=== PATIENT | male | born 1950 ===

== ENCOUNTER 2016-12-21 09:19 | Day surgery (SDC) | payer OTHER ==
[2016-12-21] VITALS (8 sets, daily range): BP systolic 116–139; BP diastolic 74–79
[~2016-12-21] VITALS: Ht 170.2 cm; Wt 64.4 kg
[2016-12-21] MEDS ORDERED: Phenylephrine 2.5% Op 2ml Soln ONE (09:51)
[2016-12-21] MEDS ORDERED: Cyclopentolate 1% Opth Sol 2ml ONE (09:51)
[2016-12-21] MEDS ORDERED: Kenalog-40 1ml Vial ONE (09:56)
[2016-12-21] MEDS ORDERED: Pred Forte 1% Opth Susp 1ml ONE (09:56)
[2016-12-21] MEDS ORDERED: BSS 500ml btl ONE (09:56)
[2016-12-21] MEDS ORDERED: Povidone-Iodine 5% opth solution ONE (09:57)
[2016-12-21] MEDS ORDERED: Kenalog-10 5ml Inj ONE (09:57)
[2016-12-21] MEDS ORDERED: Maxitrol Opth Oint 3.5gm ONE (09:57)
[2016-12-21] MEDS ORDERED: Dexamethasone 4mg/ml vial ONE (09:57)
[2016-12-21] MEDS ORDERED: Tetracaine 0.5% Opth 4ml Soln ONE (09:57)
[2016-12-21] MEDS ORDERED: Goniosol 2.5% Opth Soln - 15ml ONE (09:58)
[2016-12-21] MEDS ORDERED: Lidocaine 2% MPF 5ml Vial INJ ONE (09:58)
[2016-12-21] MEDS ORDERED: Bupivacaine 0.75% 30ml vial INJ ONE (09:58)
[2016-12-21] MEDS ORDERED: BSS 15ml BTL ONE (09:58)
[2016-12-21] MEDS ORDERED: EPINEPHrine 1mg/1ml Amp ONE (09:58)
[2016-12-21] MEDS: Phenylephrine 2.5% Op 2ml Soln RIGHT EYE SCH ×3 (10:03→10:30)
[2016-12-21] MEDS: Cyclopentolate 1% Opth Sol 2ml RIGHT EYE SCH ×3 (10:03→10:29)
[2016-12-21] MEDS ORDERED: LIPITOR40 MG ORAL (10:26)
[2016-12-21] MEDS ORDERED: LOTREL PO (10:26)
[2016-12-21] MEDS ORDERED: METFORMIN HCL500 M1 ORAL (10:26)
--- NOTE | 2016-12-21 10:49 | Pre-Procedure Note/Attestation ---
Pre-Procedure Note/Attestation Complete Prior to Procedure Planned Procedure: right Procedure Narrative: ppv/el od Indications for Procedure Pre-Operative Diagnosis: pdr, vh od Attestation I attest that I discussed the nature of the procedure; its benefits; risks and complications; and alternatives (and the risks and benefits of such alternatives ), prior to the procedure, with the patient (or the patient's legal denial management representative). I attest that, if there was a reasonable possibility of needing a blood transfusion, the patient (or the patient's legal denial management representative) was given the [facility] standardized written summary, pursuant to the [place] Blood Safety Act ([place] Health and Safety Code # 1645, as amended). I attest that I re-evaluated the patient just prior to the surgery and that there has been no change in the patient's H&P, except as documented below: ADRIENNE CAVAZOS M.D. Dec 21, 2016 10:49
[2016-12-21] MEDS ORDERED: LR 1000ml ONE (11:00)
[2016-12-21] MEDS ORDERED: Midazolam 2mg/2ml Inj ONE (11:00)
[2016-12-21] MEDS ORDERED: Propofol 200mg/20ml IV ONE (11:00)
[2016-12-21] MEDS ORDERED: NS Irrig 1000ml ONE (11:00)
[2016-12-21] MEDS ORDERED: Sterile Water Irrig 1000ml IRRIG ONE (11:00)
[2016-12-21] MEDS ORDERED: LR 1000ml 1,000 ML IVLG SCH (11:26)
[2016-12-21] MEDS ORDERED: LR 1000ml 1,000 ML IV SCH (11:30)
[2016-12-21] MEDS ORDERED: fentaNYL 100 mcg/2 mL IV PRN (11:30)
--- NOTE | 2016-12-21 11:30 | Anethesia Preoperative Eval ---
Anesthesia Pre-op PMH/ROS General Date of Evaluation: Dec 21, 2016 Time of Evaluation: 10:50 Anesthesiologist: Zhen ASA Score: ASA 3 Mallampati Score Class I : Soft palate, uvula, fauces, pillars visible Class II: Soft palate, uvula, fauces visible Class III: Soft palate, base of uvula visible Class IV: Only hard plate visible Mallampati Classification: Class II Surgeon: Francia Diagnosis: Vitreous hemorrhage right eye Surgical Procedure: Vitrectomy, endolaser, gas fluid exchange Family History: no anesthesia problems Allergies: Coded Allergies: No Known Allergies (Unverified , 12/17/16) Medications: see eMAR Past Medical History Cardiovascular: Reports: HTN, Denies: CAD, [place], valve dz, arrhythmia, other Pulmonary: Denies: asthma, COPD, MADELINE, other Gastrointestinal/Genitourinary: Denies: GERD, CRI, ESRD, other Neurologic/Psychiatric: Denies: dementia, CVA, depression/anxiety, TIA, other Endocrine: Reports: DM, Denies: hypothyroidism, steroids, other HEENT: Denies: cataract (L), cataract (R), glaucoma, [place] (L), [place] (R), other Hematology/Immune: Denies: anemia, DVT, bleeding disorder, other Musculoskeletal/Integumentary: Denies: OA, RA, DJD, DDD, edema, other PMH Narrative: DM, HTN PSxH Narrative: Hemorrhoidectomy Anesthesia Pre-op Phys. Exam Physician Exam Last Vital Signs Date Time Temp Pulse Resp B/P (MAP) Pulse Ox O2 Delivery O2 Flow Rate FiO2 12/21/16 09:56 98.4 61 18 139/79 98 Room Air Constitutional: NAD Neurologic: CN 2-12 intact Cardiovascular: RRR, no M/R/G Respiratory: CTA Gastrointestinal: S/NT/ND Airway Exam Mallampati Score: Class II MO: full ROM: full Dentures: upper Anesthesia Pre-op A/P Risk Assessment & Plan Assessment: Class 3 patient for vitrectomy Plan: MAC Status Change Before Surgery: No Pre-Antibiotics Drug: None MERLENE REAL M.D. Dec 21, 2016 11:30
--- NOTE | 2016-12-21 11:31 | Immediate Post-Op Evaluation ---
Immediate Post-Op Evalulation Immediate Post-Op Evalulation Procedure: Vitrectomy, endolaser, gas fluid exchange Date of Evaluation: Dec 21, 2016 Time of Evaluation: 12:05 IV Fluids: 575 Blood Pressure Systolic: 124 Blood Pressure Diastolic: 76 Pulse Rate: 55 Respiratory Rate: 14 O2 Sat by Pulse Oximetry: 100 Temperature (Fahrenheit): 98.3 Pain Score (1-10): 0 Nausea: No Vomiting: No Complications No complication Patient Status: awake, patent, none Hydration Status: adequate Drug: None MERLENE REAL M.D. Dec 21, 2016 11:31
[2016-12-21] MEDS ORDERED: Maxitrol Opth Susp 5ml ONE (11:49)
--- NOTE | 2016-12-21 12:00 | 48 Hour Post Anesthesia Eval ---
Post Anesthesia Evaluation Procedure: Vitrectomy, endolaser, gas fluid exchange Date of Evaluation: Dec 21, 2016 Time of Evaluation: 12:30 Blood Pressure Systolic: 125 0: 74 Pulse Rate: 55 Respiratory Rate: 15 O2 Sat by Pulse Oximetry: 100 Airway: patent Nausea: No Vomiting: No Pain Intensity: 0 Hydration Status: adequate Cardiopulmonary Status: Stable Mental Status/LOC: patient returned to baseline Follow-up Care/Observations: As per surgery Post-Anesthesia Complications: No anesthetic complication Follow-up care needed: N/A MERLENE REAL M.D. Dec 21, 2016 12:00
--- NOTE | 2016-12-21 12:05 | Operative Note - PDOC ---
Operative Note Operative Note Date of Operation/Procedure: Dec 21, 2016 Pre-op Diagnosis: pdr, vh od Procedure: ppv/mp/el od Post-op Diagnosis: same as pre-op Operative Findings: consistent w/pre-op dx studies Surgeon: rao Tap Builder: ricci Anesthesia: local Specimen: none Complications: none Condition: stable Estimated Blood Loss: none Implant(s) used?: No ADRIENNE CAVAZOS M.D. Dec 21, 2016 12:05
--- NOTE | 2016-12-21 17:30 | Operative Note - Dictated ---
DATE OF OPERATION: 12/21/2016 PREOPERATIVE DIAGNOSES: 1. Proliferative diabetic retinopathy, right eye. 2. Vitreous hemorrhage, right eye. POSTOPERATIVE DIAGNOSES: 1. Proliferative diabetic retinopathy, right eye. 2. Vitreous hemorrhage, right eye. PROCEDURES: Pars plana vitrectomy, membrane peel, and endolaser air fluid exchange, right eye. PRIMARY SURGEON: Bi Feldman M.D. AUTO MECHANIC: None. ANESTHESIA: Monitored anesthesia care with retrobulbar injection. ESTIMATED BLOOD LOSS: None. COMPLICATIONS: None. IMPLANTS: None. INDICATIONS: The patient had nonclearing vitreous hemorrhage with severe vision loss in the right eye. After benefits, alternatives, and risks were discussed, an informed consent was signed. DESCRIPTION OF PROCEDURE: The patient was brought to the operating theater and identified. The right eye then received a retrobulbar block using the usual mixture of Marcaine and lidocaine with a retrobulbar needle under intravenous sedation. The right eye was prepped and draped in the usual sterile fashion and a surgical pause was repeated. Under the operating microscope, a 23-gauge valved trocar/cannula was inserted in the inferotemporal quadrant at a distance of 3.5 mm posterior to the limbus using conjunctival displacement in an oblique incision pattern. The infusion line was attached and observed to be in the posterior segment before being turned on. The superotemporal and superonasal cannulas were placed in a similar fashion. The Qyuki visualization system was used. The light pipe was placed into the eye and appropriate view obtained on the posterior pole. Vitrectomy cutter was then placed and vitrectomy ensued in a systematic fashion starting with removal of core vitreous. I noticed a large clot of hemorrhage, which was in the subhyaloid space in the posterior pole. I used the vitrectomy cutter on aspiration to engage the posterior hyaloid and peel it off of the posterior pole towards the periphery. Additional vitrectomy was then performed and the hemorrhage was evacuated with aspiration. Next, endolaser was given in a 360-degree fashion of PRP. The peripheral retina was examined and there were no retinal breaks. There was no hemorrhage in the eye. Air fluid exchange was then performed and the eye was left filled with air. All the instruments were removed from the eye and all cannulas were removed and there was no evidence of wound leak. With an eye pressure, there was approximately 15 by palpation. Subconjunctival vancomycin and dexamethasone were injected. The lid speculum and drape were removed and periocular area cleaned. Atropine drop and Maxitrol ointment were placed in the ocular surface and a patch and shield were affixed over the closed lid with tape. The patient was then taken to the postanesthesia recovery area in good spirits and in no pain. There were no complications during this case and I performed the entire case. Thank you very much for the kind referral. Bi Feldman M.D. DR: ANGELICA JOB#: [id number] CC: OLIVIA
== END 2016-12-21 13:15 | disposition home or self-care (01) ==
LOC: SUR 09:19
DX: E11.3591 Type 2 diabetes mellitus with proliferative diabetic retinopathy without macular edema, right eye (principal); H43.11 Vitreous hemorrhage, right eye; F32.9 Major depressive disorder, single episode, unspecified; I10 Essential (primary) hypertension; M54.10 Radiculopathy, site unspecified; E78.5 Hyperlipidemia, unspecified; E11.40 Type 2 diabetes mellitus with diabetic neuropathy, unspecified
CPT/HCPCS: 67025; 67042; 82962; J0171; J1100; J2250; J2704; J3370; J3470; J3490; J7120; 94003; 94150